=== PATIENT | female | born 1980 | race Caucasian/White ===

== ENCOUNTER 2016-09-02 23:55 | Emergency (ER) | payer OTHER ==
[~2016-09-02] VITALS: Ht 157.5 cm; Wt 64.9 kg
[2016-09-03 00:08] VITALS: BP 136/79
--- NOTE | 2016-09-03 00:27 | NUR ---
PATIENT LEFT WITHOUT BEING SEEN BY DR. BURDICK. NO FURTHER CARE PROVIDED FOR PATIENT.
== END 2016-09-03 00:27 | disposition left against medical advice (07) ==
LOC: MED 23:55
DX: R07.89 Other chest pain (principal); K21.9 Gastro-esophageal reflux disease without esophagitis; Z53.21 Procedure and treatment not carried out due to patient leaving prior to being seen by health care provider

== ENCOUNTER 2017-01-15 18:49 | Emergency (ER) | payer OTHER ==
[~2017-01-15] VITALS: Ht 157.5 cm; Wt 61.3 kg
[2017-01-15 18:59] VITALS: BP 123/77
[2017-01-15] MEDS ORDERED: fentaNYL 0.05 MG/ML VIAL IM ONE (19:55)
[2017-01-15 20:18] VITALS: BP 113/74
== END 2017-01-15 20:14 | disposition home or self-care (01) ==
LOC: MED 18:49
DX: K08.89 Other specified disorders of teeth and supporting structures (principal); K21.9 Gastro-esophageal reflux disease without esophagitis
CPT/HCPCS: 99283; J3010

== ENCOUNTER 2017-03-16 10:03 | Emergency (ER) | payer OTHER ==
[~2017-03-16] VITALS: Ht 157.5 cm; Wt 60.3 kg
[2017-03-16 10:13] VITALS: BP 134/79
--- NOTE | 2017-03-16 10:17 | NUR ---
Patient ambulated to bed 04.
--- NOTE | 2017-03-16 10:20 | NUR ---
36F BIB SELF C/O BL MID-ABDOMINAL PAIN, NON-RADIATING, PT STATES " IT FEELS LIKE A STOMACH ACHE", / X 6 DAYS; PT C/O NAUSEA X 3 DAYS, BUT STATES NO VOMITING OR DIARRHEA AT THIS TIME; ABDOMEN SOFT, NON-TENDER, ACTIVE BOWEL SOUNDS X 4 QUADRANTS; PT AA&OX4, PERRLA, BL LUNG SOUNDS CLEAR, RR EVEN/UNLABORED, SKIN IS WARM/DRY/INTACT AT THIS TIME; STEADY GAIT; PT STATES " I WAS SEEN AT [facility] 3 DAYS AGO AND TOLD I HAD POLYPS HANGING FROM MY GALLBLADDER"; PT GIVEN NORCO FOR PAIN, W/NO DECREASE IN PAIN AT THIS TIME; PT RESTING IN BED WITH HOB ELEVATED AND IN LOWEST POSITION; POSITIONED FOR COMFORT; ER MD MADE AWARE OF STATUS. WILL CONTINUE TO MONITOR.
--- NOTE | 2017-03-16 10:44 | NUR ---
ER MD DR. BURDICK EVALUATING PT AT BEDSIDE.
--- NOTE | 2017-03-16 10:53 | NUR ---
PT TAKEN TO XRAY VIA W/C ACCOMPANIED BY [facility] AT THIS TIME.
--- NOTE | 2017-03-16 11:06 | NUR ---
PT RETURNED FROM XRAY VIA W/C ACCOMPANIED BY [facility].
[2017-03-16 11:25] VITALS: BP 116/77
== END 2017-03-16 11:25 | disposition home or self-care (01) ==
LOC: MED 10:03
DX: R10.9 Unspecified abdominal pain (principal); R11.0 Nausea; R03.0 Elevated blood-pressure reading, without diagnosis of hypertension; K21.9 Gastro-esophageal reflux disease without esophagitis; Z88.6 Allergy status to analgesic agent
CPT/HCPCS: 74022; 81002; 81025; 99284

== ENCOUNTER 2018-02-04 16:24 | Emergency (ER) | payer OTHER ==
[~2018-02-04] VITALS: Ht 157.5 cm; Wt 63.5 kg
[2018-02-04 16:29] VITALS: BP 103/76
--- NOTE | 2018-02-04 16:29 | NUR ---
PT AMBULATES TO BED 8
--- NOTE | 2018-02-04 16:35 | NUR ---
PATIENT PRESENTS TO ED WITH EPIGASTRIC PAIN . PT STATES . DENIES N/V/D; SKIN IS PINK/WARM/DRY; AAOX4 WITH EVEN AND STEADY GAIT; LUNGS CLEAR BL; HR EVEN AND REGULAR; PT DENIES ANY FEVER, CP, SOB, OR COUGH AT THIS TIME; PATIENT STATES PAIN OF 10/10 AT THIS TIME; VSS; PATIENT POSITIONED FOR COMFORT; HOB ELEVATED; BEDRAILS UP X2; BED DOWN. ER MD MADE AWARE OF PT STATUS.
[2018-02-04] MEDS ORDERED: LIDOCAINE VISCOUS 2% 20 ML UDC PO ONE (17:20)
[2018-02-04] MEDS ORDERED: DICYCLOMINE HCL LIQUID 10 MG/5 ML UDC PO ONE ×2 (17:20→17:30)
[2018-02-04] MEDS ORDERED: ALUMINUM HYD/MAG/SIMETHICONE 30 ML UDC PO ONE (17:20)
--- NOTE | 2018-02-04 17:36 | NUR ---
PT REFUSED MEDICATION STATED SHE WILL WAIT AND SEE HER PMD---WALKED OUT OF ER WITH DAUGHTERS ----DID NOT WANT TO SEE
== END 2018-02-04 17:36 | disposition left against medical advice (07) ==
LOC: MED 16:24
DX: R10.13 Epigastric pain (principal); Z53.21 Procedure and treatment not carried out due to patient leaving prior to being seen by health care provider